=== PATIENT | male | born 1945 | race Caucasian/White ===

== ENCOUNTER 2016-09-14 11:40 | Outpatient (CLI) | payer OTHER ==
[2014-07-19 04:45] VITALS: BP 135/81
== END 2016-09-14 11:42 ==
LOC: CARD 11:40
PROVIDERS: ATTEND Internal Medicine Cardiovascular Disease
DX: I25.10 Atherosclerotic heart disease of native coronary artery without angina pectoris (principal)
CPT/HCPCS: G0463

== ENCOUNTER 2017-10-27 08:18 | Outpatient (CLI) | payer OTHER ==
[2014-07-19 04:45] VITALS: BP 135/81
[2017-10-27 09:02] LABS: eGFR (African) > 60; eGFR (Non-African) > 60
== END 2017-10-27 08:20 ==
LOC: LAB 08:18
PROVIDERS: ATTEND Internal Medicine Cardiovascular Disease
DX: I25.10 Atherosclerotic heart disease of native coronary artery without angina pectoris (principal)
CPT/HCPCS: 36415; 80048; 80061

== ENCOUNTER 2017-11-01 13:37 | Outpatient (CLI) | payer OTHER ==
[2014-07-19 04:45] VITALS: BP 135/81
== END 2017-11-01 13:40 ==
LOC: CARD 13:37
PROVIDERS: ATTEND Internal Medicine Cardiovascular Disease
DX: I25.10 Atherosclerotic heart disease of native coronary artery without angina pectoris (principal); E78.5 Hyperlipidemia, unspecified; N52.9 Male erectile dysfunction, unspecified
CPT/HCPCS: G0463

== ENCOUNTER 2019-05-10 10:36 | Outpatient (CLI) | payer OTHER ==
[2014-07-19 04:45] VITALS: BP 135/81
--- NOTE | 2019-05-10 15:24 | Diagnostic Imaging Report ---
PATIENT MR#: [id number] PATIENT PATIENT NAME: YANCI RAMOS DATE OF : 1945 REFERRING PHYSICIAN: Reuben Goldsmith EXAM DATE: 05/10/2019 ACCESSION NUMBER: [id number] EXAM DESCRIPTION: CHEST 2VIEW HISTORY: COUGH X10 DAYS, PT STATES HX OF 3 STENTS, NON-SMOKER. COMPARISON: July 19, 2014. CHEST RADIOGRAPH, FRONTAL AND LATERAL: Upper mediastinum: Not widened. Heart: No cardiomegaly. Lungs: No lobar infiltrate, pulmonary edema, pneumothorax or significant effusion. Skeleton: No acute findings. IMPRESSION: No acute thoracic process. Read by: Dr. Jose M Barillas Transcribed by: Jose M Barillas Transcribed Date: 05/10/2019 3:23:34 PM Electronically signed by: Dr. Jose M Barillas Date signed: 05/10/2019 3:23:34 PM
== END 2019-05-10 10:46 ==
LOC: RAD 10:36
PROVIDERS: ATTEND Family Medicine
DX: R05 Cough (principal)
CPT/HCPCS: 71046